=== PATIENT | male | born 2000 | race Caucasian/White ===

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

== ENCOUNTER 2022-11-18 17:27 | Emergency (ER) | payer OTHER ==
[~2022-11-18] VITALS: Ht 170.2 cm; Wt 71.5 kg
[2022-11-18 20:19] VITALS: BP 112/69
[2022-11-18] MEDS ORDERED: IBUP-1022 PO (20:19)
== END 2022-11-18 20:25 | disposition home or self-care (01) ==
LOC: M ED 17:27
DX: S60.212A Contusion of left wrist, initial encounter (principal); W22.09XA Striking against other stationary object, initial encounter; Y92.89 Other specified places as the place of occurrence of the external cause; Y93.89 Activity, other specified; Y99.0 Civilian activity done for income or pay

== ENCOUNTER → 2022-12-04 | Outpatient (REF) | payer OTHER ==
[~2022-12-04] MED LIST: IBUP-1022 PO
[2022-12-04 18:07] LABS: THYROID STIMULATING HORMONE 0.983 uIU/ML (0.48-4.17)
== END ==
LOC: M LAB REF 16:20
PROVIDERS: ATTEND Nurse Practitioner Family
DX: Z11.9 Encounter for screening for infectious and parasitic diseases, unspecified (principal); Z68.26 Body mass index [BMI] 26.0-26.9, adult; E66.9 Obesity, unspecified

== ENCOUNTER 2023-06-12 13:08 | Emergency (ER) | payer OTHER ==
[2023-06-12 13:09] VITALS: BP 144/87; TEMP 98.2; O2SAT 99
== END 2023-06-12 15:38 | disposition left against medical advice (07) ==
LOC: M ED 13:08
DX: Z53.21 Procedure and treatment not carried out due to patient leaving prior to being seen by health care provider (principal)

== ENCOUNTER 2023-09-04 20:40 | Emergency (ER) | payer MEDICAID, OTHER, SELFPAY ==
[~2023-09-04] VITALS: Ht 170.2 cm; Wt 72.9 kg
[2023-09-04 20:41] VITALS: BP 123/75; TEMP 98.4; O2SAT 98
== END 2023-09-04 23:42 | disposition left against medical advice (07) ==
LOC: M ED 20:40
DX: Z53.21 Procedure and treatment not carried out due to patient leaving prior to being seen by health care provider (principal)